=== PATIENT | male | born 1965 | race Two or more races ===

== ENCOUNTER → 2025-04-21 | Outpatient (CLI) | payer BC, SELFPAY ==
[2025-04-21 08:25] LABS: Basophils # (Auto) 0.0 Thou/mm3 (0.0-0.2); Basophils % (Auto) 0 % (0-2.5); Eosinophils # (Auto) 0.1 Thou/mm3 (0.0-0.5); Eosinophils % (Auto) 1 % (0-10); Hematocrit 47.3 % (41.0-53.0); Hemoglobin 17.3 g/dL (13.5-16.0); Immature Granulocytes Auto 0.01 Thou/mm3 (0.00-0.00); Lymphocytes # (Auto) 1.7 Thou/mm3 (1.0-4.8); Lymphocytes % (Auto) 33 % (10-50); Mean Corpuscular HGB Conc 36.6 g/dl (31.0-37.0); Mean Corpuscular Hemoglobin 32.3 pg (25.0-35.0); Mean Corpuscular Volume 88 fL (80-100); Monocytes # (Auto) 0.5 Thou/mm3 (0.0-0.8); Monocytes % (Auto) 9 % (0-12); Neutrophils # (Auto) 2.9 Thou/mm3 (1.8-7.7); Neutrophils % (Auto) 56 % (37-80); Nucleated Red Blood Cell # 0.00 Thou/mm3 (0.00-0.00); Nucleated Red Blood Cell % 0 /100 WBC (0); Platelet Count 186 Thou/mm3 (140-440); RDW Standard Deviation 39.1 fL (35.1-43.9); Red Blood Count 5.35 Miln/mm3 (4.50-5.90); White Blood Count 5.3 Thou/mm3 (3.8-10.6)
[2025-04-21 09:00] LABS: Alanine Aminotransferase 39 U/L (10-49); Albumin, Serum 4.7 gm/dL (3.5-5.0); Alkaline Phosphatase 93 U/L (46-116); Anion Gap 11 (7-16); Aspartate Amino Transferase 30 U/L (0-34); BUN/Creatinine Ratio 9 Ratio (12-20); Bilirubin,Direct 0.3 mg/dL (0.0-0.3); Bilirubin,Total 1.0 mg/dL (0.3-1.2); Blood Urea Nitrogen 7 mg/dL (9-23); Calcium 9.5 mg/dL (8.3-10.6); Carbon Dioxide 24.3 mMol/L (20.0-31.0); Cardiac Risk Estimate 4.7 RATIO (4.0-6.7); Chloride 106 mMol/L (98-107); Cholesterol 168 mg/dL (132-200); Creatinine (Component) 0.8 mg/dL (0.6-1.3); Glucose 104 mg/dL (74-106); HDL Cholesterol 36 mg/dL (40-60); LDL Cholesterol,Calculated 103 mg/dL (0-130); Osmolality,Calculated 279 (275-295); Potassium 4.2 mMol/L (3.4-5.1); Sodium 141 mMol/L (136-145); Total Protein 7.7 gm/dL (5.7-8.2); Triglycerides 144 mg/dL (30-150); eGFR > 60 See Note
[2025-04-27 06:19] LABS: Fecal Globin Result NOT DETECTED (NOT DETECTED)
== END | disposition home or self-care (01) ==
PROVIDERS: PCP Family Medicine; Referring Provider Family Medicine; Visit Provider Family Medicine
DX: Z00.00 Encounter for general adult medical examination without abnormal findings (principal); J30.9 Allergic rhinitis, unspecified
CPT/HCPCS: 36415; 80048; 80061; 80076; 82274; 85025; G0328